=== PATIENT | female | born 1990 | race African-American/Black ===

== ENCOUNTER 2016-10-26 06:44 | Emergency (ER) | payer MEDICAID ==
[2016-10-26 06:54] VITALS: BP 118/68
== END 2016-10-26 08:11 | disposition home or self-care (01) ==
LOC: ED 06:44
DX: H61.22 Impacted cerumen, left ear (principal)

== ENCOUNTER 2016-12-04 15:45 | Emergency (ER) | payer MEDICAID ==
[~2016-12-04] VITALS: Ht 170.2 cm; Wt 81.0 kg
[2016-12-04 15:53] VITALS: BP 117/90
== END 2016-12-04 16:46 | disposition home or self-care (01) ==
LOC: ED 15:45
DX: S90.861A Insect bite (nonvenomous), right foot, initial encounter (principal); W57.XXXA Bitten or stung by nonvenomous insect and other nonvenomous arthropods, initial encounter; Y93.89 Activity, other specified; Y92.89 Other specified places as the place of occurrence of the external cause; Y99.8 Other external cause status

== ENCOUNTER 2016-12-13 03:06 | Emergency (ER) | payer MEDICAID ==
[2016-12-13 05:03] VITALS: BP 118/70
== END 2016-12-13 05:03 | disposition home or self-care (01) ==
LOC: ED 03:06
DX: T16.2XXA Foreign body in left ear, initial encounter (principal); X58.XXXA Exposure to other specified factors, initial encounter; Y93.89 Activity, other specified; Y92.89 Other specified places as the place of occurrence of the external cause; Y99.8 Other external cause status

== ENCOUNTER 2017-07-27 14:01 | Emergency (ER) | payer MEDICAID ==
[~2017-07-27] VITALS: Ht 170.2 cm; Wt 83.9 kg
[2017-07-27 14:21] VITALS: Ht 170.2 cm; Wt 83.9 kg
[2017-07-27 16:34] VITALS: BP 108/67
== END 2017-07-27 16:34 | disposition home or self-care (01) ==
LOC: ED 14:01
DX: M54.5 Low back pain (principal)
CPT/HCPCS: J1200; J1885; J2270